=== PATIENT | male | born 1950 | race Caucasian/White ===

== ENCOUNTER → 2017-07-20 | Day surgery (SDC) | payer OTHER ==
[~2017-07-20] MED LIST: IOPAMIDOL (ISOVUE-300) 100 ML BTL ONE; LIDOCAINE 1% 2 ML INJ ID PRN; LR 1,000 ML IV ONE
[2017-07-20 08:32] LABS: % IMMATURE GRANULYOCYTES 0.5 % (0.0-1.1); ABSOLUTE IMMATURE GRANULOCYTES 0.03 10^3/uL (0.00-0.10); ADD DIFF? NO; ADD MORPH? NO; ADD SCAN? NO; ATYPICAL LYMPHOCYTE FLAG 10 (0-99); FRAGMENT RBC FLAG 0 (0-99); HEMATOCRIT 37.7 % (40.0-51.0); LEFT SHIFT FLG 0 (0-99); LIPEMIA HEMOLYSIS FLAG 80 (0-99); MEAN CELL HEMOGLOBIN 28.6 pg (27.9-34.1); MEAN CELL HEMOGLOBIN CONCENTR. 31.8 g/dL (32.4-36.7); MEAN CELL VOLUME 89.8 fL (81.5-99.8); MEAN PLATELET VOLUME 11.4 fL (8.7-11.7); PLATELET CLUMPS FLAG 0 (0-99); PLATELET COUNT 117 10^3/uL (150-400); RED CELL DISTRIBUTION WIDTH 16.7 % (11.5-15.2)
[2017-07-20 08:41] LABS: INR 0.95 (0.83-1.16); PROTIME(PATIENT) 12.9 SEC (12.0-15.0)
[2017-07-20 08:42] LABS: APTT 25.7 SEC (23.0-38.0)
[2017-07-20 08:47] LABS: ALBUMIN 4.4 g/dL (3.5-5.0); ANION GAP 17 mEq/L (8-16); ASPARTATE AMINOTRANSFERASE 33 IU/L (17-59); BILIRUBIN,TOTAL 0.5 mg/dL (0.1-1.4); CALCIUM 9.6 mg/dL (8.5-10.4); CARBON DIOXIDE 19 mEq/l (22-31); CHLORIDE 108 mEq/L (97-110); CREATININE 1.3 mg/dL (0.7-1.3); GLOMERULAR FILTRATION RATE 55; GLUCOSE 131 mg/dL (70-100); LACTATE DEHYDROGENASE 308 IU/L (313-618); MAGNESIUM 1.3 mg/dL (1.6-2.3); POTASSIUM 4.8 mEq/L (3.5-5.2); SODIUM 144 mEq/L (134-144)
--- NOTE | 2017-07-20 09:24 | PDHPUP ---
History & Physical Update H&P update statement: This history and physical update is based on an assessment of the patient which was completed after admission or registration (within 24 hours), but prior to the surgery/procedure. H&P update: H&P reviewed & patient examined (patient had coffee with creamer today am - need to reschedule case. )
== END | disposition home or self-care (01) ==
LOC: FSGY 07:04
PROVIDERS: ATTEND Surgery
DX: I71.4 Abdominal aortic aneurysm, without rupture (principal); F17.200 Nicotine dependence, unspecified, uncomplicated; E11.9 Type 2 diabetes mellitus without complications; J44.9 Chronic obstructive pulmonary disease, unspecified; Z87.442 Personal history of urinary calculi; Z53.09 Procedure and treatment not carried out because of other contraindication
CPT/HCPCS: J1644; Q9967

== ENCOUNTER 2017-08-17 08:15 | Inpatient (IN) | payer OTHER ==
--- NOTE | 2017-08-17 07:10 | PDHPUP ---
History & Physical Update H&P update statement: This history and physical update is based on an assessment of the patient which was completed after admission or registration (within 24 hours), but prior to the surgery/procedure. H&P update: H&P reviewed & patient examined, no change in patient's condition since H&P completed
[2017-08-17] MEDS ORDERED: LR 1,000 ML IV ONE (08:38)
[2017-08-17] MEDS ORDERED: BUPIVACAINE/EPI 0.5% 30 ML SDV ONE (09:02)
[2017-08-17] MEDS ORDERED: THROMBIN (BOVINE) 20,000 UNIT SPRAY TP ONE (09:02)
--- NOTE | 2017-08-17 09:12 | PDANEPAE ---
ANE Past Medical History - Cardiovascular History Hx Hypertension: Yes Hx Arrhythmias: No Hx Chest Pain: No Hx Coronary Artery / Peripheral Vascular Disease: Yes Cardiovascular History Comment: AAA. CAD. HYPERCHOLESTEROLEMIA. SEEN AT [facility] - Pulmonary History Hx COPD: Yes Hx Asthma/Reactive Airway Disease: No Hx Recent Upper Respiratory Infection: No Hx Oxygen in Use at Home: No Hx Sleep Apnea: No Sleep Apnea Screening Result - Last Documented: Positive Pulmonary History Comment: JIM TRIGGERS - Neurologic History Hx Cerebrovascular Accident: No Hx Seizures: No Hx Dementia: No - Endocrine History Hx Diabetes: Yes Endocrine History Comment: TYPE 2 - Renal History Hx Renal Disorders: Yes Renal History Comment: HX OF KIDNEY STONES - Liver History Hx Hepatic Disorders: No - Neurological & Psychiatric Hx Hx Neurological and Psychiatric Disorders: Yes Neurological / Psychiatric History Comment: BIPOLAR. ANXIETY - Cancer History Hx Cancer: Yes Cancer History Comment: SKIN CA - Congenital Disorder History Hx Congenital Disorders: No - GI History Hx Gastrointestinal Disorders: Yes Gastrointestinal History Comment: REFLUX - Other Health History Other Health History: WEARS GLASSES. WEARS BILATERAL HEARING AIDES. FULL DENTURES - Chronic Pain History Chronic Pain: Yes (BACK PAIN) - Surgical History Prior Surgeries: KIDNEY STONES REMOVED. BACK SURGERY- MULTIPLE. RIGHT KNEE SURGERY X10. THAI. TONSILLECTOMY. WISDOM TEETH ANE Review of Systems Review of Systems: - Exercise capacity METS (RN): 3 METS ANE Patient History - Allergies Allergies/Adverse Reactions: ibuprofen Allergy (Verified 07/19/17 18:31) THINKS HE SWELLS UP rofecoxib [From Vioxx] Allergy (Verified 07/19/17 18:31) THINKS HE SWELLS UP Sulfa (Sulfonamide Antibiotics) Allergy (Verified 07/19/17 18:31) THINKS HE SWELLS UP - Home Medications Home medications: home medication list seen and reviewed Home Medications: ALBUTEROL SULFATE PRN 07/19/17 [Last Taken Unknown] Aspirin 81mg (*) DAILY 07/19/17 [Last Taken 1 Week Ago ~08/10/17] Atenolol HS 07/19/17 [Last Taken 08/16/17] CALCIUM DAILY 07/19/17 [Last Taken 1 Week Ago ~08/10/17] CLONAZEPAM BID 07/19/17 [Last Taken 08/17/17] Docusate Sodium DAILY06 07/19/17 [Last Taken 1 Week Ago ~08/10/17] Levemir BID 07/19/17 [Last Taken 08/17/17] Metformin HCl BID 07/19/17 [Last Taken 1 Week Ago ~08/10/17] Multi-Vitamin Daily DAILY 07/19/17 [Last Taken 1 Week Ago ~08/10/17] OLANZapine HS 07/19/17 [Last Taken 1 Week Ago ~08/10/17] Omeprazole DAILY18 07/19/17 [Last Taken 08/17/17] VENLAFAXINE HCL BID 07/19/17 [Last Taken 08/17/17] busPIRone TID 07/19/17 [Last Taken 08/17/17] - Smoking Hx Smoking Status: Current some day smoker - Family Anes Hx Family Hx Anesthesia Complications: NONE ANE Labs/Vital Signs - Vital Signs Blood Pressure: 143/81 Heart Rate: 84 Respiratory Rate: 16 O2 Sat (%): 84 Height: 177.8 cm Weight: 88.451 kg
[2017-08-17] MEDS ORDERED: MIDAZOLAM 2 MG/2 ML VIAL IVP ONE (09:29)
[2017-08-17] MEDS ORDERED: HYDROmorphONE/DILAUDID 1 MG/ML INJ IVP PRN (09:29)
[2017-08-17] MEDS ORDERED: PROPOFOL 200 MG/20 ML VIAL ONE (09:43)
[2017-08-17] MEDS ORDERED: fentaNYL 100 MCG/2 ML INJ ONE (09:44)
[2017-08-17] MEDS ORDERED: LIDOCAINE 2% 5 ML SDV ONE (09:57)
[2017-08-17] MEDS ORDERED: HYDROmorphONE/DILAUDID 2 MG TAB ONE (10:49)
[2017-08-17] MEDS ORDERED: HYDROmorphONE/DILAUDID 2 MG TAB PO ONE ×2 (11:00)
[2017-08-17] MEDS ORDERED: ACETAMINOPHEN 325 MG TAB PO PRN (11:12)
[2017-08-17] MEDS ORDERED: ONDANSETRON 4 MG/2 ML VIAL IVP PRN (11:12)
[2017-08-17] MEDS ORDERED: ONDANSETRON DISINTEGRATING 4 MG TAB PO PRN (11:12)
--- NOTE | 2017-08-17 12:19 | SOAPPROG ---
SOAP Progress Note Assessment/Plan: Assessment: Patient presented today for scheduled endovascular AAA repair, but potassium is 5.6. Anesthesia team deemed this too risky for procedure. Plan: Patient admitted for correction of potassium. NPO after MN for tomorrow's case scheduled at 1:30pm. Consulting hospitalist service to help co-manage. Patient understands and is in agreement. 08/17/17 12:56 Subjective: No complaints. Objective: Vital Signs Temp Pulse Resp BP Pulse Ox 36.8 C 84 16 143/81 H 84 L 08/17/17 09:40 08/17/17 09:40 08/17/17 09:40 08/17/17 09:40 08/17/17 09:40 Laboratory Results 08/17/17 09:20 - Pending Discharge Pending Discharge Within 24 Hours: No Pending Discharge Within 48 Hours: No ICD10 Worksheet Patient Problems: Problems Problem Status Onset AAA (abdominal aortic aneurysm) without rupture Acute Hyperkalemia Acute - ICD10 Problem Qualifiers (1) AAA (abdominal aortic aneurysm) without rupture (2) Hyperkalemia
[2017-08-17] MEDS ORDERED: NS 1,000 ML IV SCH (13:45)
[2017-08-17] MEDS ORDERED: NICOTINE 14 MG/24 HR PATCH TD SCH ×2 (13:45→14:36)
[2017-08-17] MEDS ORDERED: SODIUM POLY SULF 15 GM/60 ML BOTTLE PO ONE (14:11)
[2017-08-17] MEDS ORDERED: ALBUTEROL 3 ML DEYVIAL IH ONE (14:12)
[2017-08-17] MEDS ORDERED: CARBOXYMETHYLCELLULOSE 1% 0.4 ML DROPERETTE EACHEYE PRN (14:14)
[2017-08-17] MEDS ORDERED: ALBUTEROL 60 PUFFS/8 GM MDI IH PRN (14:14)
[2017-08-17] MEDS ORDERED: VENLAFAXINE HCL 75 MG TAB PO SCH (14:15)
[2017-08-17] MEDS ORDERED: D50W 25 GM/50 ML SYR IVP PRN (14:17)
[2017-08-17] MEDS: NICOTINE 21 MG/24 HR PATCH TD SCH (15:07)
--- NOTE | 2017-08-17 16:26 | GCON ---
[f rep st] CONSULTATION REASON FOR CONSULTATION: Management of hyperkalemia. PHYSICIANS REQUESTING CONSULTATION: Dr. Beth Vasquez and Dr. Maico Hassan. HISTORY OF PRESENT ILLNESS: The patient is a 67-year-old gentleman who was scheduled to have AAA surgery. It was canceled because his potassium was elevated at 5.6. Anesthesia felt this was too risky for this procedure. In addition, he was to have surgery on July 20 but had coffee with cream that morning and it was canceled due to oral intake. The hospitalist team was asked to help care for him and evaluate his potassium. During my interview, he is having no chest pain. No shortness of breath. No changes in his appetite. No changes in his vision. His main complaint is that he has chronic back pain from having multiple back surgeries, but otherwise has no other complaints. PAST MEDICAL HISTORY: 1. Glaucoma. 2. Diabetic neuropathy. 3. Type 1 diabetes diagnosed 5 years ago on insulin agents. 4. Kidney stones. 5. Bipolar disease. 6. Hard of hearing. Wears hearing aids. 7. COPD. 8. Chronic back pain, on continuous opioids. PAST SURGICAL HISTORY: 1. He has had more than 40 surgeries, most of them orthopedic. 2. Cholecystectomy. 3. Cataract surgery. 4. Multiple back fusions. FAMILY HISTORY: His parents are . His mom had health issues including kidney failure and heart conditions. His father of complications from prostate cancer. SOCIAL HISTORY: He has been for 37 years. He does not drink alcohol. He states he is in the process of quitting smoking. He has smoked for the past 50 years, 3 packs a day. He said he is now down to 3 cigarettes a day. He has 2 sons. HOME MEDICATIONS: Metformin 1000 mg b.i.d., Klonopin 1 mg b.i.d., BuSpar 5 mg t.i.d., venlafaxine 25 mg b.i.d., Timoptic drops 1 drop to each eye b.i.d., Viagra 50 mg p.r.n., Prilosec 20 mg daily, Zyprexa 7.5 mg q.h.s., multivitamin 1 tab daily, saline eyedrops 1 drop to each eye at night, Levemir 40 units subcu b.i.d., Colace 200 mg daily, Refresh eye drops p.r.n., calcium carbonate with vitamin D 500 mg p.o. b.i.d., Alphagan 1 drop each eye b.i.d., atenolol 50 mg p.o. q.h.s., aspirin 81 mg daily, albuterol 1 to 2 puffs inhalation p.r.n. REVIEW OF SYSTEMS: A 10-point review of systems was performed, was negative other than pertinent positives in the HPI and past medical history. ALLERGIES: Ibuprofen and sulfa. PHYSICAL EXAM: GENERAL: The patient is a 67-year-old male who appears to be in fair health. VITAL SIGNS: Blood pressure is 143/81, heart rate is 84, respiratory rate is 16, O2 saturation on room air 84%, temperature is 36.8 Celsius. HEENT: Eyes: He is wearing glasses. Pupils are equal reactive. No conjunctival injection noted. ENT: He is very hard of hearing. He does not have his hearing aids in place at this time. Oral airway is moist. NECK: Trachea is midline. CARDIOVASCULAR: He is in a regular rate and rhythm. No murmurs, rubs, or gallops noted. CHEST/LUNGS: Normal respiratory effort. LUNGS: Diminished from mid lobes down. ABDOMEN: Large and round, soft, and nontender. SKIN: No rashes or ulcer noted. MUSCULOSKELETAL: Normal gait. He uses a cane when he is walking. He has equal upper and lower extremity strength. PSYCHIATRIC: He is alert and oriented. Normal mood, affect. Normal judgment, insight, and normal memory. LABORATORY DATA: Data reviewed. A CBC shows a white blood cell count of 5.13, hemoglobin 13, hematocrit of 39.7, platelet count of 129. Chemistry: Sodium is 146, potassium 5.6, chloride of 111, CO2 of 21, BUN of 17, creatinine of 1.2 , glucose 142. ASSESSMENT/PLAN: 1. Hyperkalemia. Will give him an albuterol inhaler x1 now and will also order Kayexalate. Will check a 12-lead EKG. Also, we will place him on telemetry monitoring. I will give him normal saline. He appears to be somewhat dehydrated. Will place in him on a low potassium diet. Will check a potassium level this evening and in the morning. 2. Thrombocytopenia. In reviewing his previous labs, this has been consistently low. 3. Chronic obstructive pulmonary disease. His oxygen levels on room air are low. I suspect that he will possibly need oxygen in the outpatient setting. Will order scheduled DuoNeb to help bronchodilate him prior to this surgery. 4. Bipolar disorder. Resumed home medications. 5. Glaucoma. Medications resumed. 6. Infrarenal abdominal aortic aneurysm. He is to get repair tomorrow as long as his potassium is stable and his vital signs are stable. 7. Diabetes type 1. Will give him a lower dose of his long acting since he will be NPO. He usually takes this twice daily. Will place it on once a night and cover him on the sliding scale. 8. Deep venous thrombosis prophylaxis per surgical team. 9. Code status: Full. Thank you for this consultation. The hospitalist will continue to follow Mr. Han during his hospital stay. /[id number]/MODL MTDD
--- NOTE | 2017-08-17 17:13 | CPEKG ---
Heart Rate: 81 RR Interval: 741 P-R Interval: 144 QRSD Interval: 82 QT Interval: 348 QTC Interval: 404 P Cresco: 51 QRS Cresco: -20 T Wave Cresco: 55 EKG Severity - BORDERLINE ECG - EKG Impression: SINUS RHYTHM EKG Impression: BORDERLINE LEFT AXIS DEVIATION EKG Impression: LOW VOLTAGE IN FRONTAL LEADS EKG Impression: BORDERLINE R WAVE PROGRESSION, ANTERIOR LEADS Electronically Signed By: Jozef Stanton 18-Aug-2017 06:39:39
[2017-08-17] MEDS: clonazePAM 1 MG TAB PO SCH (17:14)
[2017-08-17] MEDS: PANTOPRAZOLE SODIUM 40 MG TAB PO SCH (17:15)
[2017-08-17] MEDS: busPIRone 5 MG TAB PO SCH ×3 (17:15→23:12)
[2017-08-17] MEDS: VENLAFAXINE HCL 75 MG TAB PO SCH (17:15)
[2017-08-17] MEDS: INSULIN LISPRO 100 UNIT/ML SC SCH (17:17)
[2017-08-17] MEDS ORDERED: oxyCODONE IR 5 MG TAB PO PRN (17:22)
[2017-08-17] MEDS: IPRATROPIUM/ALBUTEROL 3 ML DEYVIAL IH SCH ×2 (17:49→23:01)
[2017-08-17] MEDS: NICOTINE POLACRILEX 2 MG GUM B PRN ×2 (18:46→20:09)
[2017-08-17] MEDS: oxyCODONE IR 5 MG TAB PO PRN (20:08)
[2017-08-17] MEDS: OLANZapine 2.5 MG TAB PO SCH (21:01)
[2017-08-17] MEDS: ATENOLOL 50 MG TAB PO SCH (21:01)
[2017-08-17] MEDS: INSULIN GLARGINE 100 UNITS/ML UNIT SC SCH (21:02)
[2017-08-17] MEDS ORDERED: ZOLPIDEM TARTRATE 5 MG TAB PO PRN (21:30)
[2017-08-17] MEDS ORDERED: ORAL BALANCE GEL TUBE PO PRN (21:30)
[2017-08-17] MEDS: BRIMONIDINE 0.2% EACHEYE SCH (22:04)
[2017-08-17] MEDS: LATANOPROST 0.005% 2.5 ML OPHT DROPS EACHEYE SCH (22:04)
[2017-08-17] MEDS: TIMOLOL 0.5% 15 ML OPHT.BTL EACHEYE SCH (22:05)
[2017-08-18] MEDS: IPRATROPIUM/ALBUTEROL 3 ML DEYVIAL IH SCH ×3 (04:52→17:31)
[2017-08-18] MEDS ORDERED: IOPAMIDOL (ISOVUE-300) 100 ML BTL ONE ×3 (08:06→16:15)
[2017-08-18] MEDS: oxyCODONE IR 5 MG TAB PO PRN ×3 (08:48→21:58)
[2017-08-18] MEDS: clonazePAM 1 MG TAB PO SCH ×2 (08:48→21:57)
[2017-08-18] MEDS: VENLAFAXINE HCL 75 MG TAB PO SCH ×2 (08:48→22:03)
[2017-08-18] MEDS: busPIRone 5 MG TAB PO SCH ×3 (08:49→22:03)
[2017-08-18] MEDS: INSULIN LISPRO 100 UNIT/ML SC SCH ×3 (08:49→19:08)
[2017-08-18] MEDS: TIMOLOL 0.5% 15 ML OPHT.BTL EACHEYE SCH ×2 (08:49→21:59)
[2017-08-18] MEDS: BRIMONIDINE 0.2% EACHEYE SCH ×2 (08:49→21:59)
[2017-08-18] MEDS: NICOTINE POLACRILEX 2 MG GUM B PRN ×2 (09:04→09:05)
[2017-08-18] MEDS: NICOTINE 21 MG/24 HR PATCH TD SCH (10:35)
[2017-08-18] MEDS ORDERED: THROMBIN (BOVINE) 20,000 UNIT SPRAY TP ONE (10:52)
[2017-08-18] MEDS ORDERED: BUPIVACAINE 0.5% 30 ML SDV ONE (10:52)
--- NOTE | 2017-08-18 10:52 | HOSPPROG ---
Hospitalist Progress Note Assessment/Plan: 67 yo M w dm, htn, here for elective AAA repair which was postponed for hyperkalemia hyperkalemia: resolved possibly 2/2 atenolol hypernatremia: mild, 2/2 NS., which has been stopped rec 1/2 ns in OR DM: good outpt control insulin halved given NPO resume normal doses postop proph: rec pharm VTE proph when ok from bleeding/procedural perspective dispo: inpatient Subjective: no events telemetry (interp by me). case d/w dr avalos Objective: Vital Signs Temp Pulse Resp BP Pulse Ox 36.6 C 90 12 139/70 H 99 08/18/17 07:13 08/18/17 07:13 08/18/17 07:13 08/18/17 07:13 08/18/17 07:13 Laboratory Results 08/18/17 03:34 08/17/17 08/18/17 08/19/17 05:59 05:59 05:59 Intake Total 1700 Balance 1700 - Physical Exam Constitutional: no apparent distress, appears nourished Eyes: PERRL, anicteric sclera Ears, Nose, Mouth, Throat: moist mucous membranes, hearing normal Cardiovascular: regular rate and rhythym, no murmur, rub, or gallop, No systolic murmur Respiratory: no respiratory distress, no rales or rhonchi Gastrointestinal: normoactive bowel sounds, soft, non-tender abdomen Genitourinary: No gottlieb in urethra Skin: warm, normal color Musculoskeletal: full muscle strength, no muscle tenderness, normal joint ROM Neurologic: AAOx3, sensation intact bilaterally ICD10 Worksheet Patient Problems: Problems Problem Status Onset AAA (abdominal aortic aneurysm) without rupture Acute Hyperkalemia Acute
--- NOTE | 2017-08-18 12:03 | ASMTCASEMG ---
Living Arrangements What is your living Answers: With Spouse arrangement? Who do you live with? Type Of Residence What kind of residence do Answers: House you live in? Discharge Plan Comments Coordination Status Comments Notes: Pt is a 67 y/o man admitted for hyperkalemia. Pt is scheduled to have AAA today. Needs are TBD at this time. CM will f/u post surgery. Plan: TBD Date Signed: 08/18/2017 12:02 PM Electronically Signed By:JOSE Dasilva
[2017-08-18] MEDS ORDERED: MIDAZOLAM 2 MG/2 ML VIAL IVP ONE (13:54)
--- NOTE | 2017-08-18 14:05 | PDANEPAE ---
ANE History of Present Illness endovascular AAA ANE Past Medical History - Cardiovascular History Hx Hypertension: Yes Hx Arrhythmias: No Hx Chest Pain: No Hx Coronary Artery / Peripheral Vascular Disease: Yes Cardiovascular History Comment: AAA. CAD. HYPERCHOLESTEROLEMIA. SEEN AT [facility] - Pulmonary History Hx COPD: Yes Hx Asthma/Reactive Airway Disease: No Hx Recent Upper Respiratory Infection: No Hx Oxygen in Use at Home: No Hx Sleep Apnea: No Sleep Apnea Screening Result - Last Documented: Positive Pulmonary History Comment: JIM TRIGGERS - Neurologic History Hx Cerebrovascular Accident: No Hx Seizures: No Hx Dementia: No - Endocrine History Hx Diabetes: Yes Endocrine History Comment: TYPE 2 - Renal History Hx Renal Disorders: Yes Renal History Comment: HX OF KIDNEY STONES - Liver History Hx Hepatic Disorders: No - Neurological & Psychiatric Hx Hx Neurological and Psychiatric Disorders: Yes Neurological / Psychiatric History Comment: BIPOLAR. ANXIETY - Cancer History Hx Cancer: Yes Cancer History Comment: SKIN CA - Congenital Disorder History Hx Congenital Disorders: No - GI History Hx Gastrointestinal Disorders: Yes Gastrointestinal History Comment: REFLUX - Other Health History Other Health History: WEARS GLASSES. WEARS BILATERAL HEARING AIDES. FULL DENTURES - Chronic Pain History Chronic Pain: Yes (BACK PAIN) - Surgical History Prior Surgeries: KIDNEY STONES REMOVED. BACK SURGERY- MULTIPLE. RIGHT KNEE SURGERY X10. THAI. TONSILLECTOMY. WISDOM TEETH ANE Review of Systems Review of Systems: - Exercise capacity METS (RN): 3 METS ANE Patient History - Allergies Allergies/Adverse Reactions: ibuprofen Allergy (Verified 07/19/17 18:31) THINKS HE SWELLS UP rofecoxib [From Vioxx] Allergy (Verified 07/19/17 18:31) THINKS HE SWELLS UP Sulfa (Sulfonamide Antibiotics) Allergy (Verified 07/19/17 18:31) THINKS HE SWELLS UP - Home Medications Home Medications: Albuterol [Proventil Inhaler HFA (*)] 1 - 2 puffs IH DAILY PRN 07/19/17 [Last Taken Unknown] Aspirin [Aspirin 81mg (*)] 81 mg PO DAILY 07/19/17 [Last Taken 1 Week Ago ~08/10] Atenolol [Tenormin 50 mg (*)] 50 mg PO HS 07/19/17 [Last Taken 08/16/17] Calcium Carb W/Vit D [Calcium Carb W/Vit D 500/200 (*)] 500 mg PO BID@06/25 [Last Taken 1 Week Ago ~08/10/17] Docusate Sodium [Colace 100 MG (*)] 200 mg PO DAILY 07/19/17 [Last Taken 1 Week Ago ~08/10/17] Insulin Detemir [Levemir] 40 unit SQ BID 07/19/17 [Last Taken 08/17/17] Multivitamins [Multivitamin (*)] 1 each PO DAILY 07/19/17 [Last Taken 1 Week Ago ~08/10/17] OLANZapine [ZyPREXA 2.5 mg (*)] 7.5 mg PO HS 07/19/17 [Last Taken 1 Week Ago ~] Omeprazole [Prilosec 20 mg] 20 mg PO DAILY@07/19/17 [Last Taken 08/16/17] Venlafaxine HCl [Venlafaxine 75MG (*)] 75 mg PO BID 07/19/17 [Last Taken ] busPIRone [Buspar (*)] 5 mg PO TID@,07/19/17 [Last Taken 08/17/17] clonazePAM [klonoPIN (*)] 1 mg PO BID@07/19/17 [Last Taken 08/17/17] metFORMIN HCL [Glucophage 1000 mg] 1,000 mg PO BID 07/19/17 [Last Taken 1 Week Ago ~08/10/17] Brimonidine 0.2% [ALPHAGAN 0.2% (RX)] 1 drops EACHEYE BID 08/17/17 [Last Taken 08/17/17] Carboxymethylcellulose 1% [Refresh Celluvisc (*)] 1 drop EACHEYE DAILY PRN 08/17 [Last Taken Unknown] Latanoprost 0.005% [Xalatan 0.005% (*)] 1 drops EACHEYE HS 08/17/17 [Last Taken 08/16/17] Sildenafil Citrate [Viagra 50 MG (*)] 50 mg PO DAILY PRN 08/17/17 [Last Taken Unknown] Timolol 0.5% [TIMOPTIC 0.5% (*)] 1 drops EACHEYE BID 08/17/17 [Last Taken ] - NPO status NPO Status: no food or drink >8 hours NPO Since - Liquids (Date): 08/18/17 NPO Since - Liquids (Time): 00:00 NPO Since - Solids (Date): 08/18/17 NPO Since - Solids (Time): 00:00 - Smoking Hx Smoking Status: Current some day smoker - Family Anes Hx Family Hx Anesthesia Complications: NONE ANE Labs/Vital Signs - Labs Result Diagrams: 08/18/17 03:34 - Vital Signs Blood Pressure: 174/91 Heart Rate: 91 Respiratory Rate: 18 O2 Sat (%): 93 Height: 177.8 cm Weight: 88.45 kg ANE Physical Exam - Airway Mallampati Score: Class 2 Mouth exam: normal dental/mouth exam - Pulmonary Pulmonary: no respiratory distress - Cardiovascular Cardiovascular: regular rate and rhythym - ASA Status ASA Status: III ANE Anesthesia Plan Anesthesia Plan: general endotracheal anesthesia, GA w LMA
[2017-08-18] MEDS ORDERED: DEXAMETHASONE 4 MG/ML VIAL ONE (14:12)
[2017-08-18] MEDS ORDERED: ROCURONIUM 100 MG/10 ML VIAL ONE (14:12)
[2017-08-18] MEDS ORDERED: LIDOCAINE 2% 5 ML SDV ONE (14:13)
[2017-08-18] MEDS ORDERED: fentaNYL 100 MCG/2 ML INJ ONE (14:13)
[2017-08-18] MEDS ORDERED: PROPOFOL 200 MG/20 ML VIAL ONE (14:13)
[2017-08-18] MEDS ORDERED: PHENYLEPHRINE HCL 100 MCG/ML SYR ONE (14:49)
[2017-08-18] MEDS ORDERED: HEPARIN 10,000 UNIT/10 ML MDV ONE (15:44)
[2017-08-18] MEDS ORDERED: SUGAMMADEX SODIUM 200 MG/2 ML VIAL IVP ONE (16:47)
[2017-08-18] MEDS ORDERED: OXYCODONE/APAP 5/325 TAB PO PRN (17:02)
[2017-08-18] MEDS ORDERED: POLYETHYLENE GLYCOL 3350 17 GM PKT PO PRN (17:02)
[2017-08-18] MEDS ORDERED: BISACODYL 10 MG SUPP PR PRN (17:02)
[2017-08-18] MEDS ORDERED: LACTULOSE 20 GM/30 ML UDCUP PO PRN (17:02)
[2017-08-18] MEDS ORDERED: MAGNESIUM HYDROXIDE 30 ML UDCUP PO PRN (17:02)
[2017-08-18] MEDS ORDERED: NALOXONE HCL 0.4 MG/ML INJ IVP PRN ×3 (17:04→18:42)
--- NOTE | 2017-08-18 17:04 | POSTANESTH ---
Post Anesthetic Evaluation Cardiovascular Status: Normal, Stable Respiratory Status: Normal, Stable Level of Consciousness/Mental Status: Can Participate in Eval Pain Control: Adequate, Prn Tx Ordered Nausea/Vomiting Control: Adequate, Prn Tx Ordered Complications Possibly Related to Anesthesia: None Noted
--- NOTE | 2017-08-18 17:06 | PDRADPN ---
Radiology Procedure Note Date of Procedure: 08/18/17 Radiologist: Beth Vasquez Anesthesiologist: Russell Anesthesia: GET(General Endotracheal) Pre-op Diagnosis: AAA Post-op Diagnosis: same Indication: enlarging AAA Procedure: percutaneous endovascular repair Finding(s): stentgraft placed. no endoleaks. Inf/Abcess present in the surg proc area at time of surgery?: No EBL: Minimal Complications: none
[2017-08-18] MEDS ORDERED: NS 1,000 ML IV SCH (17:15)
--- NOTE | 2017-08-18 17:35 | SOAPPROG ---
SOAP Progress Note Assessment/Plan: Assessment:no overnight events. repeat k down to 4 today. patient rec'd kayexylate last manuel and IVF/albuterol. he is without complaints. today. avss. comfortable. abd soft, nontender. ext with palp pedal pulses. for EVAR today. will attempt PEVAR approach if CVA amenable. Surgical risks and benefits explained in detail to patient and family. Risks of open conversion, open femoral access, bleeding, infection, , as well as others have been reviewed in detail. All questions answered. They desire to proceed. Plan: 08/18/17 17:33 Objective: Vital Signs Temp Pulse Resp BP Pulse Ox 36.4 C 87 9 L 146/72 H 99 08/18/17 17:00 08/18/17 17:00 08/18/17 17:00 08/18/17 17:00 08/18/17 17:00 Laboratory Results 08/18/17 13:58 08/17/17 08/18/17 08/19/17 05:59 05:59 05:59 Intake Total 1700 672 Balance 1700 672 ICD10 Worksheet Patient Problems: Problems Problem Status Onset AAA (abdominal aortic aneurysm) without rupture Acute Hyperkalemia Acute
[2017-08-18] MEDS ORDERED: morphINE PCA 30 MG/30 ML PCA IV ONE (17:57)
[2017-08-18] MEDS ORDERED: morphINE PCA 30 MG/30 ML PCA IV PRN ×2 (18:32→18:42)
--- NOTE | 2017-08-18 18:36 | SOAPPROG ---
SOAP Progress Note Assessment/Plan: Assessment: Patient presented today for scheduled endovascular AAA repair, but potassium is 5.6. Anesthesia team deemed this too risky for procedure. Plan: Patient admitted for correction of potassium. NPO after MN for tomorrow's case scheduled at 1:30pm. Consulting hospitalist service to help co-manage. Patient understands and is in agreement. 08/17/17 12:56 08/18/17 18:35 Post percutaneous AAA endograft repair. Back pain, from lying on hard bed and unable to straighten legs right now for groin recovery. CHART CHANGER morphine for back pain; wean once patient can be more mobile and pain improves. Subjective: Severe LBP, mainly because he can not straighten his legs for now. This is his usual back pain. Objective: Vital Signs Temp Pulse Resp BP Pulse Ox 36.4 C 92 15 153/81 H 97 08/18/17 17:00 08/18/17 18:00 08/18/17 18:00 08/18/17 18:00 08/18/17 18:00 Laboratory Results 08/18/17 13:58 08/17/17 08/18/17 08/19/17 05:59 05:59 05:59 Intake Total 1700 687 Balance 1700 687 No hematoma on either side. Palpable pedal pulses. ICD10 Worksheet Patient Problems: Problems Problem Status Onset AAA (abdominal aortic aneurysm) without rupture Acute Hyperkalemia Acute - ICD10 Problem Qualifiers (1) AAA (abdominal aortic aneurysm) without rupture (2) Hyperkalemia
[2017-08-18] MEDS: ATENOLOL 50 MG TAB PO SCH (19:53)
[2017-08-18] MEDS ORDERED: LORazepam 2 MG/ML INJ IVP ONE (21:15)
[2017-08-18] MEDS: OLANZapine 2.5 MG TAB PO SCH (21:57)
[2017-08-18] MEDS: PANTOPRAZOLE SODIUM 40 MG TAB PO SCH (21:57)
[2017-08-18] MEDS: SENNOSIDES/DOCUSATE SODIUM TAB PO SCH (21:58)
[2017-08-18] MEDS: LATANOPROST 0.005% 2.5 ML OPHT DROPS EACHEYE SCH (21:59)
[2017-08-18] MEDS: INSULIN GLARGINE 100 UNITS/ML UNIT SC SCH (22:11)
[2017-08-19] MEDS: IPRATROPIUM/ALBUTEROL 3 ML DEYVIAL IH SCH ×3 (00:35→10:18)
[2017-08-19] MEDS ORDERED: HYDROmorphONE/DILAUDID 6 MG/30 ML PCA IV PRN (00:43)
[2017-08-19] MEDS: oxyCODONE IR 5 MG TAB PO PRN (05:39)
[2017-08-19 06:20] LABS: PLATELET COUNT 110 10^3/uL (150-400)
--- NOTE | 2017-08-19 07:52 | SOAPPROG ---
SOAP Progress Note Assessment/Plan: Assessment:no overnight problems - groin pain only. no abd c/o. no leg complaints. afebrile. p100's. comfortable, up in bed. abd soft, nontender. groins flat with minimal oozing on dressings. 2+ DP/PT bilat. no embolic lesions. s/p PEVAR. doing great. out of bed. po meds. prob dc later today. repeat K. no overnight events. repeat k down to 4 today. patient rec'd kayexylate last manuel and IVF/albuterol. he is without complaints. today. avss. comfortable. abd soft, nontender. ext with palp pedal pulses. for EVAR today. will attempt PEVAR approach if CVA amenable. Surgical risks and benefits explained in detail to patient and family. Risks of open conversion, open femoral access , bleeding, infection, , as well as others have been reviewed in detail. All questions answered. They desire to proceed. Plan: 08/18/17 17:33 08/19/17 07:51 Objective: Vital Signs Temp Pulse Resp BP Pulse Ox 37.1 C 99 14 145/62 H 96 08/19/17 06:00 08/19/17 06:16 08/19/17 06:16 08/19/17 06:00 08/19/17 06:00 Laboratory Results 08/19/17 06:00 08/18/17 13:58 08/18/17 08/19/17 08/20/17 05:59 05:59 05:59 Intake Total 1700 1987 Output Total 1375 Balance 1700 612 ICD10 Worksheet Patient Problems: Problems Problem Status Onset AAA (abdominal aortic aneurysm) without rupture Acute Hyperkalemia Acute
[2017-08-19] MEDS: INSULIN LISPRO 100 UNIT/ML SC SCH (08:01)
[2017-08-19] MEDS: SENNOSIDES/DOCUSATE SODIUM TAB PO SCH (08:02)
[2017-08-19] MEDS: clonazePAM 1 MG TAB PO SCH (08:03)
[2017-08-19] MEDS: VENLAFAXINE HCL 75 MG TAB PO SCH (08:03)
[2017-08-19] MEDS: NICOTINE 21 MG/24 HR PATCH TD SCH (08:04)
[2017-08-19] MEDS: busPIRone 5 MG TAB PO SCH (08:04)
[2017-08-19] MEDS: TIMOLOL 0.5% 15 ML OPHT.BTL EACHEYE SCH (08:05)
[2017-08-19] MEDS: BRIMONIDINE 0.2% EACHEYE SCH (08:05)
[2017-08-19] MEDS ORDERED: FLU VACC QS 2017-18 (3YR+)/PF 0.5 ML SYR (FLUARIX QUAD) IM ONE (09:15)
[2017-08-19 09:41] VITALS: TEMP 98.6
[2017-08-19 09:50] VITALS: BP 150/78; PULSE 99; RESP 20; O2SAT 94
--- NOTE | 2017-08-19 10:09 | HOSPPROG ---
Hospitalist Progress Note Assessment/Plan: 67 yo M w dm, htn, here for elective AAA repair which was postponed for hyperkalemia hyperkalemia: resolved possibly 2/2 atenolol likely 2/2 high intake of coke zero, a soft drink high in potassium hypernatremia: mild, 2/2 NS., which has been stopped rec 1/2 ns in OR DM: good outpt control insulin halved given NPO resume normal doses postop proph: rec pharm VTE proph when ok from bleeding/procedural perspective home today > 30 minutes on dc Subjective: amenable to dc. up and eating Objective: Vital Signs Temp Pulse Resp BP Pulse Ox 37.0 C 99 20 150/78 H 94 08/19/17 07:00 08/19/17 09:44 08/19/17 09:44 08/19/17 09:44 08/19/17 09:44 Laboratory Results 08/19/17 06:00 08/19/17 08:30 08/18/17 08/19/17 08/20/17 05:59 05:59 05:59 Intake Total 1700 1987 Output Total 1375 Balance 1700 612 - Physical Exam Constitutional: no apparent distress, appears nourished Eyes: PERRL, anicteric sclera Ears, Nose, Mouth, Throat: moist mucous membranes, hearing normal Cardiovascular: regular rate and rhythym, no murmur, rub, or gallop Respiratory: no respiratory distress, no rales or rhonchi Gastrointestinal: normoactive bowel sounds, soft, non-tender abdomen Genitourinary: No gottlieb in urethra Skin: warm, normal color Musculoskeletal: full muscle strength Neurologic: AAOx3 ICD10 Worksheet Patient Problems: Problems Problem Status Onset AAA (abdominal aortic aneurysm) without rupture Acute Hyperkalemia Acute
--- NOTE | 2017-08-19 11:02 | SOAPPROG ---
SOAP Progress Note Assessment/Plan: Assessment: 67 yo M w AAA s/p perc EVAR 1 day ago. Groins bruised but soft bilaterally; no palpable hematoma. DP pulses 2+ and symmetric. Plan: 1. OK to DC from an IR standpoint. 2. F/u w Dr. Hassan. Thank you for the opportunity to assist in the care of Mr. Han. 08/19/17 11:02 Subjective: Back pain improved today. Still present but back to baseline. Appetite good. Plans to get out of bed and walk around with assistance this am. Objective: Vital Signs Temp Pulse Resp BP Pulse Ox 37.0 C 99 20 150/78 H 94 08/19/17 07:00 08/19/17 09:44 08/19/17 09:44 08/19/17 09:44 08/19/17 09:44 Laboratory Results 08/19/17 06:00 08/19/17 08:30 08/18/17 08/19/17 08/20/17 05:59 05:59 05:59 Intake Total 1700 1987 Output Total 1375 Balance 1700 612 Gen: Awake, alert, NAD Heart: RRR Lungs: Normal effort Abd: NDNT, soft Vasc: Groins bruised but soft bilaterally, DP pulses 2+ and symmetric Neuro: Gross nonfocal Psych: Normal affect ICD10 Worksheet Patient Problems: Problems Problem Status Onset AAA (abdominal aortic aneurysm) without rupture Acute Hyperkalemia Acute
--- NOTE | 2017-08-19 19:20 | GOP ---
[f rep st] OPERATIVE REPORT DATE OF OPERATION: 08/18/2017 SURGEON: Maico Hassan MD CO-SURGEON: Beth Vasquez MD ANESTHESIA: General. Noel Wells MD PREOPERATIVE DIAGNOSIS: Infrarenal abdominal aortic aneurysm. POSTOPERATIVE DIAGNOSIS: Infrarenal abdominal aortic aneurysm. PROCEDURE PERFORMED: Percutaneous endovascular aortic aneurysm repair. FINDINGS: See below. INDICATIONS: 67-year-old male with an enlarging infrarenal abdominal aortic aneurysm. Preoperative imaging studies show very small calcified bilateral common femoral arteries. He is taken to the endovascular suite today for endovascular repair. Surgical risks and benefits were explained to the patient in detail including, but not limited to bleeding, infection, open conversion, endoleak, need for additional therapeutic intervention, major vascular injury, indications for open and percutaneous access as well as success rates and risks of bleeding. He is also aware of the potential risk of distal leg embolization and need for additional revascularization. Cardiovascular risks were also discussed. All questions are entertained. He desires to proceed. DESCRIPTION OF PROCEDURE: General anesthesia was induced. Bilateral groins were interrogated with ultrasonography. Our initial plan was to pursue bilateral cutdown approaches given the small heavily calcified femoral artery vessels. Once anesthetized, the small calcified femoral arteries were interrogated with US and traced from the inguinal ligament down toward their bifurcations. These arteries were both small in caliber measuring between 6 and 7 mm. Percutaneous access was initially obtained bilaterally under ultrasound guidance. Having safely accomplished this with guidewire placement, the veins were both serially dilated with placement of pre close devices. Having been able to satisfactorily obtain bilateral common femoral artery access , need for open artery exploration was thus avoided. The main body of the graft was passed via the left femoral artery through a 16-[place] sheath. The [place]iat Excluder graft was able to be placed beneath the level of bilateral single renal arteries with the left graft limb terminating above the internal external iliac artery bifurcation. The contralateral groin was dilated to a 12-[place] sheath and the contralateral limb was passed via the Endograft without difficulty with this limb being terminated in a mirror image location just above the internal external artery bifurcations. The graft was subsequently dilated with a tacking balloon. There was no evidence of leak upon final aortogram imaging. The catheters were both removed from the left and right groins and the access sites closed with the pre close devices satisfactorily. No evidence of ongoing bleeding was noted or expanding hematoma. Upon completion, bilateral warm feet with palpable dorsalis pedis and posterior tibial pulses were present. The patient was extubated in the interventional suite and taken to the intensive care unit in good condition. /[id number]/MODL MTDD
--- NOTE | 2017-08-19 22:16 | GDS ---
[f rep st] DISCHARGE SUMMARY DISCHARGE DIAGNOSES: 1. Hyperkalemia secondary to high intake of Coke Zero, a known high potassium soda. 2. Abdominal aortic aneurysm, status post repair endovascularly by Dr. Beth Vasquez. 3. Glaucoma. 4. Type 1 diabetes, on insulin. 5. Nephrolithiasis. 6. Bipolar. HOSPITAL COURSE: Please see admission history and physical by Dr. Maico Hassan, as well as consultati on by Dr. Lorene Javier. Patient presented for surgery. He had a potassium that was noted to be s lightly elevated at 5.6, responded to conservative therapy. He underwent an unremarkable endovascula r repair. Hemoglobin A1c was 6.7. He was discharged home. His groin status post surgery was withou t incident. /[id number]/MODL
== END 2017-08-19 11:00 | disposition home or self-care (01) | DRG 269 ==
LOC: FSGY 08:15 → F3E 11:13 → F2W 12:08 → F2N 08-18 16:38
PROVIDERS: ADMIT Radiology Diagnostic Radiology; ATTEND Surgery
PROC: 04V03D6 (ICD-10-PCS; principal; 2017-08-17)
DX: I71.4 Abdominal aortic aneurysm, without rupture (principal); E87.5 Hyperkalemia; E87.1 Hypo-osmolality and hyponatremia; E10.40 Type 1 diabetes mellitus with diabetic neuropathy, unspecified; J44.9 Chronic obstructive pulmonary disease, unspecified; H40.9 Unspecified glaucoma; F31.9 Bipolar disorder, unspecified; M54.9 Dorsalgia, unspecified; Z98.1 Arthrodesis status; Z79.4 Long term (current) use of insulin; Z87.442 Personal history of urinary calculi
CPT/HCPCS: 86850-90; 86870-90; 99001-90; C1725; C1769; C1894; G0008; J0171; J1100; J1170; J1644; J1815; J2060; J2250; J2270; J2370; J2704; J3010; J7613; Q9967

== ENCOUNTER → 2018-07-13 | Outpatient (CLI) | payer OTHER ==
[~2018-07-13] MED LIST changes: +IOPAMIDOL (ISOVUE 370) 100 ML BTL IV ONE; -IOPAMIDOL (ISOVUE-300) 100 ML BTL ONE; -LIDOCAINE 1% 2 ML INJ ID PRN; -LR 1,000 ML IV ONE
== END ==
LOC: FIMAGING 13:35
PROVIDERS: ATTEND Radiology Diagnostic Radiology
DX: I71.4 Abdominal aortic aneurysm, without rupture (principal)
CPT/HCPCS: 74174; Q9967; 82565-PO